=== PATIENT | female | born 1930 | race Caucasian/White ===

== ENCOUNTER 2018-09-06 10:31 | Emergency (ER) | payer OTHER ==
[~2018-09-06] VITALS: Ht 162.6 cm; Wt 58.1 kg
[~2018-09-06 10:31] MED LIST: ASPIR 8181 MG; CARDIZEM60 MG; CELEBREX200MG; COZAAR50 MG; EVISTA60 MG; FOLIC ACID1 MG; LASIX20 MG; LOPRESSOR25 MG; METFORMIN HCL500 M2; NEURONTIN300 MG; PLAVIX75 MG; SINEMET CR 25-1 EACH; SYNTHROID75 MCG; ULTRACET; VITAMIN D250000 UNIT
== END 2018-09-06 18:04 | disposition home or self-care (01) ==
LOC: ER 10:31
DX: R53.83 Other fatigue (principal); G30.8 Other Alzheimer's disease; F02.80 Dementia in other diseases classified elsewhere, unspecified severity, without behavioral disturbance, psychotic disturbance, mood disturbance, and anxiety

== ENCOUNTER 2018-10-22 13:09 | Emergency (ER) | payer OTHER ==
[~2018-10-22] VITALS: Ht 162.6 cm; Wt 58.1 kg
== END 2018-10-22 22:38 | disposition home or self-care (01) ==
LOC: ER 13:09
DX: R13.19 Other dysphagia (principal); J69.0 Pneumonitis due to inhalation of food and vomit; R63.0 Anorexia; R05 Cough; G20 Parkinson's disease; F02.81 Dementia in other diseases classified elsewhere, unspecified severity, with behavioral disturbance; I16.0 Hypertensive urgency; I10 Essential (primary) hypertension

== ENCOUNTER 2020-01-18 13:13 | Emergency (ER) | payer OTHER ==
[~2020-01-18] VITALS: Ht 152.4 cm; Wt 59.0 kg
== END 2020-01-18 21:43 | disposition home or self-care (01) ==
LOC: ER 13:13
DX: I16.0 Hypertensive urgency (principal); I10 Essential (primary) hypertension; N39.0 Urinary tract infection, site not specified; B96.29 Other Escherichia coli [E. coli] as the cause of diseases classified elsewhere; G30.8 Other Alzheimer's disease; F02.80 Dementia in other diseases classified elsewhere, unspecified severity, without behavioral disturbance, psychotic disturbance, mood disturbance, and anxiety